=== PATIENT | female | born 1935 | race Caucasian/White ===

== ENCOUNTER 2018-12-18 19:13 | Inpatient (IN) | payer MEDICARE, BC ==
[~2018-12-18] VITALS: Ht 167.6 cm; Wt 64.3 kg
[~2018-12-18 19:13] MED LIST: ASPI81CH PO; LEVSOD50 PO; LEVSOD75 PO; Zofran4 MG PO
[2018-12-18 19:45] LABS: BASOPHILS ABSOLUTE AUTO 0.08 K/mm3 (0.00-0.23); BASOPHILS PERCENT AUTO 0 % (0-2); EOSINOPHILS ABSOLUTE AUTO 0.01 K/mm3 (0.00-0.68); EOSINOPHILS PERCENT AUTO 0 % (0-6); Hematocrit 41.3 % (33.0-51.0); Hemoglobin 13.7 g/dL (11.5-16.0); IMMATURE GRAN ABSOLUTE AUTO 0.09 K/mm3 (0.00-0.10); IMMATURE GRAN PERCENT AUTO 0 % (0-1); LYMPHOCYTES ABSOLUTE AUTO 3.54 K/mm3 (0.84-5.20); LYMPHOCYTES PERCENT AUTO 16 % (21-46); MONOCYTES ABSOLUTE AUTO 1.68 K/mm3 (0.16-1.47); MONOCYTES PERCENT AUTO 8 % (4-13); Mean Corpuscular HGB 30.6 pg (26.0-34.0); Mean Corpuscular HGB Conc 33.2 g/dL (31.5-36.5); Mean Corpuscular Volume 92 fL (80-100); Mean Platelet Volume 11.3 fL (9.1-12.4); NEUTROPHILS PERCENT AUTO 75 % (41-73); Platelet Count 206 K/mm3 (150-400); RDW Coefficient Variation 13.5 % (11.7-14.2); RDW Standard Deviation 46.3 fL (35.1-46.3); Red Blood Cell Count 4.48 M/mm3 (3.80-5.20)
[2018-12-18 20:14] LABS: Alanine Aminotransfer (ALT/SGP 30 U/L (12-78); Albumin, Blood 3.4 g/dL (3.4-5.0); Albumin/Globulin Ratio 0.9 (0.8-1.8); Alk Phos 61 U/L (50-136); Anion Gap 10 mmol/L (6-16); Aspartate Aminotrans (AST/SGOT 67 U/L (12-37); Bilirubin, Total 1.2 mg/dL (0.1-1.0); Blood Urea Nitrogen 23 mg/dL (8-24); Bun/Creatinine Ratio 28.7 (12.0-20.0); CO2, Blood 21 mmol/L (21-32); Chloride, Blood 106 mmol/L (98-108); Globulin, Blood 3.6 g/dL (2.2-4.0); Glomerular Filtration Rate >60 (60-); Glucose, Blood 121 mg/dL (70-99); Potassium, Blood 3.8 mmol/L (3.5-5.5); Sodium, Blood 137 mmol/L (136-145)
[2018-12-18 20:35] LABS: Creatine Kinase MB 14.2 ng/mL (0.0-3.6)
[2018-12-18] MEDS ORDERED: ELIQUIS2.5 MG PO (21:54)
[2018-12-18] MEDS ORDERED: METO25ER PO (21:55)
--- NOTE | 2018-12-19 00:26 | NUR ---
Transfer report from Saul SCHMITT on 83 year old Female being admitted after falling at home and being down on ground since around 5 am . She has reported bruises to lt face shoulder and ankle area and will be obs PT with full code status. Await admission.
[2018-12-19 03:57] LABS: Source, Urine Clean Catch
[2018-12-19 04:01] LABS: Appearance, Urine Cloudy (Clear); Bilirubin, Urine Neg (Neg); Blood, Urine 4+ (Neg); Color, Urine Amber (P-Yellow); Glucose Qualitative, Urine Neg (Neg); Ketones, Urine 2+ (Neg); Leukocyte Esterase, Urine 3+ (Neg); Nitrite, Urine Neg (Neg); Protein, Urine 3+ (Neg); Specific Gravity, Urine 1.025 (1.003-1.022); Urobilinogen, Urine NORM (Normal)
[2018-12-19 04:06] LABS: White Blood Cells, Urine TNTC /hpf (0-5)
[2018-12-19 04:07] LABS: Bacteria Many /hpf; Red Blood Cells, Urine 0-2 /hpf (0-2); Squamous Epithelial Cells Not Seen /hpf (Few)
--- NOTE | 2018-12-19 04:16 | NUR ---
83 year old Female lives alone fell approx 36 hours and recieved red non blanching areas to lt shoulder, lt ankle and upper spine scattered. Photo doc areas. PT has hx of lt breast lumpectomy and no lymph node dissection, hx of rt hip resurfacing and rt shoulder surgery. pain in rt hip with any movement and lt le and lt ue mild to moderate pain with movement. Getting IV fluids x 1 l at 150 ml per hour. Used bedpan to void cloudy strong urine x 1 UA positive C & S pending. No Children, has Friend who is currently out of town. Uses cane to ambulate baseline up hills etc, lives in [place]. Has Afib on Eliquis 2.5 mg po BID and synthroid. Rare tylenol use. Well educated retired educator. Continue to assess, has PT OT eval and Pallative care consult. continue to assess.
[2018-12-19 05:34] LABS: BASOPHILS PERCENT AUTO 1 % (0-2); EOSINOPHILS ABSOLUTE AUTO 0.18 K/mm3 (0.00-0.68); EOSINOPHILS PERCENT AUTO 1 % (0-6); Hematocrit 36.6 % (33.0-51.0); Hemoglobin 12.2 g/dL (11.5-16.0); IMMATURE GRAN ABSOLUTE AUTO 0.07 K/mm3 (0.00-0.10); IMMATURE GRAN PERCENT AUTO 0 % (0-1); LYMPHOCYTES ABSOLUTE AUTO 5.63 K/mm3 (0.84-5.20); LYMPHOCYTES PERCENT AUTO 30 % (21-46); MONOCYTES ABSOLUTE AUTO 1.66 K/mm3 (0.16-1.47); MONOCYTES PERCENT AUTO 9 % (4-13); Mean Corpuscular HGB 30.9 pg (26.0-34.0); Mean Corpuscular HGB Conc 33.3 g/dL (31.5-36.5); Mean Corpuscular Volume 93 fL (80-100); Mean Platelet Volume 11.8 fL (9.1-12.4); NEUTROPHILS PERCENT AUTO 60 % (41-73); Platelet Count 194 K/mm3 (150-400); RDW Coefficient Variation 13.5 % (11.7-14.2); Red Blood Cell Count 3.95 M/mm3 (3.80-5.20); White Blood Cell Count 18.94 K/mm3 (4.00-11.30)
[2018-12-19 05:51] LABS: Anion Gap 8 mmol/L (6-16); Blood Urea Nitrogen 28 mg/dL (8-24); Bun/Creatinine Ratio 32.9 (12.0-20.0); CO2, Blood 24 mmol/L (21-32); Calcium, Blood 8.2 mg/dL (8.5-10.1); Chloride, Blood 107 mmol/L (98-108); Creatinine, Blood 0.85 mg/dL (0.40-1.00); Glomerular Filtration Rate >60 (60-); Glucose, Blood 95 mg/dL (70-99); Potassium, Blood 3.5 mmol/L (3.5-5.5); Sodium, Blood 139 mmol/L (136-145)
--- NOTE | 2018-12-19 18:15 | NUR ---
PATIENT IS ALERT AND ORIENTED AND COMPLIANT WITH ALL CARES THOUGH ANY MOVEMENT RESULTS IN SEVERE PAIN TO HER RIGHT FX HIP. DRISCOLL ORDERED.
--- NOTE | 2018-12-19 18:50 | NUR ---
1650 URINARY CATH INSERTED PER ORDER. PATIENT TOLERATED WELL.
--- NOTE | 2018-12-20 04:31 | NUR ---
SHIFT SUMMARY: PT IS ALERT AND ORIENTED. PT IS CALM AND COOPERATIVE WITH CARE. PT CALLS APPROPRIATELY. PT ON BEDREST, NOT OUT OF BED OVERNIGHT. PT REPORTS R. HIP PAIN, MEDICATING PER EMAR. PT DENIES NAUSEA, VOMITING, AND SOB. PT SLEPT MUCH OF THE NIGHT WHEN NOT DISTURBED. ORTHO CONSULT PENDING. NO ACUTE CHANGES OR COMPLICATIONS OVERNIGHT. BED IN LOW POSITION, CALL LIGHT WITHIN REACH. WILL REPORT TO DAY NURSE.
[2018-12-20 05:27] LABS: Hematocrit 36.3 % (33.0-51.0); Hemoglobin 11.9 g/dL (11.5-16.0); Mean Corpuscular HGB 30.3 pg (26.0-34.0); Mean Corpuscular HGB Conc 32.8 g/dL (31.5-36.5); Mean Corpuscular Volume 92 fL (80-100); Mean Platelet Volume 11.3 fL (9.1-12.4); Platelet Count 188 K/mm3 (150-400); RDW Coefficient Variation 13.4 % (11.7-14.2); RDW Standard Deviation 46.5 fL (35.1-46.3); Red Blood Cell Count 3.93 M/mm3 (3.80-5.20); White Blood Cell Count 17.61 K/mm3 (4.00-11.30)
[2018-12-20 05:56] LABS: Alanine Aminotransfer (ALT/SGP 22 U/L (12-78); Albumin, Blood 2.6 g/dL (3.4-5.0); Albumin/Globulin Ratio 0.8 (0.8-1.8); Alk Phos 49 U/L (50-136); Anion Gap 7 mmol/L (6-16); Aspartate Aminotrans (AST/SGOT 37 U/L (12-37); Bilirubin, Total 0.9 mg/dL (0.1-1.0); Blood Urea Nitrogen 21 mg/dL (8-24); Bun/Creatinine Ratio 28.5 (12.0-20.0); CO2, Blood 23 mmol/L (21-32); Calcium, Blood 8.1 mg/dL (8.5-10.1); Chloride, Blood 105 mmol/L (98-108); Creatinine, Blood 0.74 mg/dL (0.40-1.00); Globulin, Blood 3.3 g/dL (2.2-4.0); Glomerular Filtration Rate >60 (60-); Glucose, Blood 113 mg/dL (70-99); Potassium, Blood 3.8 mmol/L (3.5-5.5); Sodium, Blood 135 mmol/L (136-145); Total Protein, Blood 5.9 g/dL (6.4-8.2)
[2018-12-20 06:05] LABS: BAND PERCENT MAN 1 % (0-8); BASOPHILS PERCENT MAN 0 % (0-2); EOSINOPHILS ABSOLUTE MAN 0.17 K/mm3 (0.00-0.68); EOSINOPHILS PERCENT MAN 1 % (0-6); LYMPHOCYTES % ATYPICAL MANUAL 7 % (0-0); LYMPHOCYTES ABSOLUTE MAN 7.04 K/mm3 (0.84-5.20); LYMPHOCYTES PERCENT MAN 33 % (21-46); METAMYELOCYTE ABSOLUTE MAN 0.17 K/mm3 (0.00-0.00); METAMYELOCYTE PERCENT MAN 1 % (0-0); MONOCYTES ABSOLUTE MAN 1.23 K/mm3 (0.16-1.47); MONOCYTES PERCENT MAN 7 % (4-13); NEUTROPHILS ABSOLUTE MAN 8.98 K/mm3 (1.96-9.15); SEG NEUTROPHILS PERCENT MAN 50 % (41-73); TOTAL CELLS COUNTED 100
--- NOTE | 2018-12-20 18:08 | NUR ---
PATIENT IS ALERT AND ORIENTED AND COOPERATIVE WITH CARE. SHE CALLS APPROPRIATELY. DR. DICKINSON ASSESSED THE PATIENT AND ORDERED A CT OF HER RIGHT LEG. A DRISCOLL IS IN PLACE. THE PATIENT STATES SHE HAS NOT HAD A BM IN A FEW DAYS SO BOWEL PROTOCOL HAS BEEN INITIATED. SHE COMPLAINS OF PAIN IN HER RIGHT LOWER EXTREMITY. SHE WAS MEDICATED THIS MORNING AND COMPLAINED THAT THE PAIN MEDICATION MADE HER NAUSEOUS AND DIZZY. SHE BEGAN TO FEEL BETTER THROUGHOUT THE DAY. SHE ATE BROTH FOR LUNCH AND DINNER.
--- NOTE | 2018-12-21 05:05 | NUR ---
SHIFT SUMMARY: PT IS ALERT AND ORIENTED. PT IS CALM AND COOPERATIVE WITH CARE. PT CALLS APPROPRIATELY. PT NOT ABLE TO STAND AT THIS POINT, R. HIP IS QUITE PAINFUL DURING MOVEMENT. PT TAKEN FOR CT OF THE R. HIP EARLY IN THE SHIFT. DRISCOLL PATENT AND DRAINING YELLOW URINE. PT DENIES NAUSEA, VOMITING, AND SOB. PT REPORTS PAIN DURING MOVEMENT, NO MEDICATIONS NEEDED THIS SHIFT. PT SLEPT MUCH OF THE NIGHT. NO ACUTE CHANGES. WILL REPORT TO DAY NURSE.
--- NOTE | 2018-12-21 18:19 | NUR ---
SHIFT SUMMARY NO CHANGES IN ASSESSMENT AT THIS TIME. PT AWAITING BED AT [facility] FOR TRANSFER. PT MEDICATED FOR HYPERTENSION. WILL REASSESS. OTHER VITALS STABLE. PT ONLY ALLOWED ONE REPOSITION THIS SHIFT DUE TO PAIN WITH MOVEMENT. PT DENIES OTHER NEEDS. PT ANXIOUS TO BE TRANSFERED. WILL CONTINUE TO MONITOR UNTIL TURNOVER IS COMPLETE.
--- NOTE | 2018-12-21 18:28 | NUR ---
REPORT CALLED TO KASHIF REPORT CALLED TO KARLOS NURSE, JODIE. JODIE DENIED ANY FURTHER QUESTIONS. TRANSPORT SCHEDULED TO PICK PT UP IN 30 MINUTES. WILL CONTINUE TO MONITOR PT.
== END 2018-12-21 19:34 | disposition short-term general hospital (02) | DRG 536 ==
LOC: ER 19:13 → MEDS 19:14 → ENPENDDIS 12-21 11:35 → EDPENDDIS 12-21 11:35 → MEDS 12-21 19:34
PROVIDERS: Emergency Medicine; Internal Medicine; ADMIT Hospitalist
DX: S72.141A Displaced intertrochanteric fracture of right femur, initial encounter for closed fracture (principal); S42.202A Unspecified fracture of upper end of left humerus, initial encounter for closed fracture; M97.01XA Periprosthetic fracture around internal prosthetic right hip joint, initial encounter; M62.82 Rhabdomyolysis; N39.0 Urinary tract infection, site not specified; I48.2 Chronic atrial fibrillation; B96.20 Unspecified Escherichia coli [E. coli] as the cause of diseases classified elsewhere; E03.9 Hypothyroidism, unspecified; W19.XXXA Unspecified fall, initial encounter; Z79.01 Long term (current) use of anticoagulants; Z85.3 Personal history of malignant neoplasm of breast; M81.0 Age-related osteoporosis without current pathological fracture
CPT/HCPCS: 36415; 70450; 71045; 72100; 73030; 73501; 73502; 73700; 80048; 80053; 81001; 82550; 82553; 84484; 85025; 86850; 86900; 86901; 87077; 87086; 87186; 93005; 93010; 97166; 97530; 99285-25; A9270-GY; J0696; J1650; J7030

== ENCOUNTER 2019-06-07 12:47 | Emergency (ER) | payer MEDICARE, BC ==
[~2019-06-07] VITALS: Ht 167.6 cm; Wt 81.7 kg
[~2019-06-07 12:47] MED LIST changes: +ELIQUIS2.5 MG PO; +METO25ER PO
[2019-06-07] MEDS ORDERED: Norco 5-325 Ta1 EACH PO (15:02)
== END 2019-06-07 15:26 | disposition home or self-care (01) ==
LOC: ER 12:47
DX: M47.816 Spondylosis without myelopathy or radiculopathy, lumbar region (principal); M81.0 Age-related osteoporosis without current pathological fracture; Z79.899 Other long term (current) drug therapy; Z79.01 Long term (current) use of anticoagulants; Z87.81 Personal history of (healed) traumatic fracture; W19.XXXA Unspecified fall, initial encounter
CPT/HCPCS: 72100; 99283-25

== ENCOUNTER 2020-03-23 14:29 | Inpatient (IN) | payer MEDICARE, BC ==
[~2020-03-23] VITALS: Ht 167.6 cm; Wt 57.9 kg
[~2020-03-23 14:29] MED LIST changes: +Norco 5-325 Ta1 EACH PO
[2020-03-23] MEDS ORDERED: ELIQUIS2.5 MG PO (15:03)
[2020-03-23 15:11] LABS: Hematocrit 42.2 % (33.0-51.0); Hemoglobin 13.8 g/dL (11.5-16.0); Mean Corpuscular HGB 29.9 pg (26.0-34.0); Mean Corpuscular HGB Conc 32.7 g/dL (31.5-36.5); Mean Corpuscular Volume 92 fL (80-100); Mean Platelet Volume 11.8 fL (9.1-12.4); Platelet Count 259 K/mm3 (150-400); RDW Coefficient Variation 13.3 % (11.7-14.2); RDW Standard Deviation 44.9 fL (35.1-46.3); Red Blood Cell Count 4.61 M/mm3 (3.80-5.20); White Blood Cell Count 15.11 K/mm3 (4.00-11.30)
[2020-03-23 15:21] LABS: International Normalized Ratio 1.05; Prothrombin Time Results 11.2 Sec (9.7-11.5)
[2020-03-23 15:30] LABS: Alanine Aminotransfer (ALT/SGP 15 U/L (12-78); Albumin, Blood 3.4 g/dL (3.4-5.0); Alk Phos 66 U/L (50-136); Anion Gap 7 mmol/L (6-16); Aspartate Aminotrans (AST/SGOT 15 U/L (12-37); Bilirubin, Total 0.3 mg/dL (0.1-1.0); Blood Urea Nitrogen 20 mg/dL (8-24); Bun/Creatinine Ratio 23.6 (12.0-20.0); CO2, Blood 24 mmol/L (21-32); Chloride, Blood 103 mmol/L (98-108); Creatinine, Blood 0.85 mg/dL (0.40-1.00); Globulin, Blood 3.5 g/dL (2.2-4.0); Glomerular Filtration Rate >60 (60-); Glucose, Blood 143 mg/dL (70-99); Potassium, Blood 4.2 mmol/L (3.5-5.5); Sodium, Blood 134 mmol/L (136-145); Total Protein, Blood 6.9 g/dL (6.4-8.2); Troponin I <0.015 ng/mL (0.000-0.040)
[2020-03-23 15:49] LABS: BASOPHILS PERCENT MAN 0 % (0-2); EOSINOPHILS ABSOLUTE MAN 0.15 K/mm3 (0.00-0.68); EOSINOPHILS PERCENT MAN 1 % (0-6); LYMPHOCYTES % ATYPICAL MANUAL 5 % (0-0); LYMPHOCYTES ABSOLUTE MAN 6.64 K/mm3 (0.84-5.20); LYMPHOCYTES PERCENT MAN 39 % (21-46); MONOCYTES ABSOLUTE MAN 2.11 K/mm3 (0.16-1.47); MONOCYTES PERCENT MAN 14 % (4-13); NEUTROPHILS ABSOLUTE MAN 6.19 K/mm3 (1.96-9.15); SEG NEUTROPHILS PERCENT MAN 41 % (41-73); TOTAL CELLS COUNTED 100
[2020-03-23 16:18] LABS: Source, Urine Catheter
[2020-03-23 16:23] LABS: Bilirubin, Urine Neg (Neg); Blood, Urine Neg (Neg); Glucose Qualitative, Urine Neg (Neg); Ketones, Urine 1+ (Neg); Leukocyte Esterase, Urine Neg (Neg); Nitrite, Urine Neg (Neg); Protein, Urine Neg (Neg); Urobilinogen, Urine NORM (Normal)
[2020-03-23 16:31] LABS: Appearance, Urine Clear (Clear); Color, Urine Pale Yellow (P-Yellow)
--- NOTE | 2020-03-24 05:10 | NUR ---
SHIFT SUMMARY ADMITTED FROM ER THIS SHIFT FOR AMS. FULL CODE. HANDOFF GIVEN FROM ER NURSE AMOS. SHE WAS TRANSPORTED TO [facility] VIA GURNEY. ORIENTED TO UNIT, CALL BUTTON WITHIN REACH, BED ALARM SET. SHE IS ABLE TO GET UP TO BSC AND MAKE HER NEEDS KNOWN. TODAY SHE SHOULD GET AN MRI AND AN ECHO. R/O TIA. IF SHE CONTINUES TO BE BRADYCARDIC, THE PLAN IS TO CALL A CARDIOLOGY CONSULT. FOR MY SHIFT HER HR RANGED 44 - 48 BPM.
[2020-03-24 05:11] LABS: Hematocrit 38.8 % (33.0-51.0); Hemoglobin 12.7 g/dL (11.5-16.0); Mean Corpuscular HGB 29.9 pg (26.0-34.0); Mean Corpuscular HGB Conc 32.7 g/dL (31.5-36.5); Mean Corpuscular Volume 91 fL (80-100); Mean Platelet Volume 11.7 fL (9.1-12.4); Platelet Count 236 K/mm3 (150-400); RDW Coefficient Variation 13.2 % (11.7-14.2); RDW Standard Deviation 44.5 fL (35.1-46.3); Red Blood Cell Count 4.25 M/mm3 (3.80-5.20); White Blood Cell Count 13.18 K/mm3 (4.00-11.30)
[2020-03-24 05:35] LABS: BASOPHILS PERCENT MAN 0 % (0-2); EOSINOPHILS ABSOLUTE MAN 0.13 K/mm3 (0.00-0.68); EOSINOPHILS PERCENT MAN 1 % (0-6); LYMPHOCYTES ABSOLUTE MAN 5.93 K/mm3 (0.84-5.20); LYMPHOCYTES PERCENT MAN 45 % (21-46); MONOCYTES ABSOLUTE MAN 1.18 K/mm3 (0.16-1.47); MONOCYTES PERCENT MAN 9 % (4-13); NEUTROPHILS ABSOLUTE MAN 5.93 K/mm3 (1.96-9.15); SEG NEUTROPHILS PERCENT MAN 45 % (41-73); TOTAL CELLS COUNTED 100
[2020-03-24 05:42] LABS: Alanine Aminotransfer (ALT/SGP 11 U/L (12-78); Albumin, Blood 3.2 g/dL (3.4-5.0); Alk Phos 57 U/L (50-136); Anion Gap 6 mmol/L (6-16); Aspartate Aminotrans (AST/SGOT 17 U/L (12-37); Bilirubin, Total 0.5 mg/dL (0.1-1.0); Blood Urea Nitrogen 15 mg/dL (8-24); Bun/Creatinine Ratio 19.6 (12.0-20.0); CHOL/HDL RATIO 2.6; CO2, Blood 24 mmol/L (21-32); Calcium, Blood 8.6 mg/dL (8.5-10.1); Chloride, Blood 103 mmol/L (98-108); Cholesterol 188 mg/dL (50-200); Creatinine, Blood 0.77 mg/dL (0.40-1.00); Globulin, Blood 3.1 g/dL (2.2-4.0); Glomerular Filtration Rate >60 (60-); Glucose, Blood 88 mg/dL (70-99); HDL Cholesterol 73 mg/dL (>39); LDL/HDL RATIO 1.4; Low Density Lipoprotein Chol 102 mg/dL (0-110); Potassium, Blood 3.8 mmol/L (3.5-5.5); Sodium, Blood 133 mmol/L (136-145); Total Protein, Blood 6.3 g/dL (6.4-8.2); Triglycerides 66 mg/dL (30-160); Very Low Density Lipoprot Chol 13 mg/dL (6-32)
--- NOTE | 2020-03-24 12:33 | NUR ---
CALLED TELEMETRY AND PT'S HR 71 ADMINISTRED METOPROLOL 25 MG PER EMAR.
--- NOTE | 2020-03-24 17:27 | NUR ---
PT AOX3-4 AND COOPERATIVE OF CARE. PT HAS BEEN UP FOR MEALS AND IS A ONE PERSON ASSIST TO RESTROOM. PT DOES NOT USE CALL LIGHT AT TIMES AND WILL SET BED ALARM OFF INSTEAD OF CALLING FOR ASSISTANCE EVEN THOUGH SHE SEEMS TO KNOW WHY NURSES WANT TO HELP HER. PT CAN BE SLIGHTLY UNSTEADY ON HER FEET AND MOVES QUICKLY. PT HAS CALL LIGHT WITHIN REACH WILL CONTINUE TO MONITOR.
--- NOTE | 2020-03-25 03:51 | NUR ---
SHIFT SUMMARY ADMITTED FOR AMS. FULL CODE. PLAN IS TO RETRIEVE/INTERPRET THE ECHO RESULTS, AND POSSIBLY DC W/ DAY HOLTER MONITOR IF NO NEW CONCERNS. HOME BETA ALICIA MEDICINE IS RESUMED. 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 THIS PT CAN BE FORGETFUL AND CONFUSED AT TIMES BUT IS EASILY REDIRECTABLE. NO PROBLEMS WITH SWALLOWING OR EATING. CARDIOLOGY CONSULT IS DR. GOYAL. NO NEW CONCERNS THIS SHIFT.
[2020-03-25 04:57] LABS: Hematocrit 37.1 % (33.0-51.0); Hemoglobin 12.4 g/dL (11.5-16.0); Mean Corpuscular HGB 30.3 pg (26.0-34.0); Mean Corpuscular HGB Conc 33.4 g/dL (31.5-36.5); Mean Corpuscular Volume 91 fL (80-100); Mean Platelet Volume 11.4 fL (9.1-12.4); Platelet Count 223 K/mm3 (150-400); RDW Coefficient Variation 13.2 % (11.7-14.2); RDW Standard Deviation 43.9 fL (35.1-46.3); Red Blood Cell Count 4.09 M/mm3 (3.80-5.20); White Blood Cell Count 15.02 K/mm3 (4.00-11.30)
[2020-03-25 05:15] LABS: Anion Gap 4 mmol/L (6-16); Blood Urea Nitrogen 18 mg/dL (8-24); Bun/Creatinine Ratio 23.2 (12.0-20.0); CO2, Blood 25 mmol/L (21-32); Calcium, Blood 8.7 mg/dL (8.5-10.1); Chloride, Blood 104 mmol/L (98-108); Creatinine, Blood 0.78 mg/dL (0.40-1.00); Glomerular Filtration Rate >60 (60-); Glucose, Blood 86 mg/dL (70-99); Potassium, Blood 4.1 mmol/L (3.5-5.5); Sodium, Blood 133 mmol/L (136-145)
[2020-03-25 05:57] LABS: BASOPHILS ABSOLUTE MAN 0.15 K/mm3 (0.00-0.23); BASOPHILS PERCENT MAN 1 % (0-2); EOSINOPHILS ABSOLUTE MAN 0.45 K/mm3 (0.00-0.68); EOSINOPHILS PERCENT MAN 3 % (0-6); LYMPHOCYTES ABSOLUTE MAN 8.11 K/mm3 (0.84-5.20); LYMPHOCYTES PERCENT MAN 54 % (21-46); MONOCYTES PERCENT MAN 12 % (4-13); SEG NEUTROPHILS PERCENT MAN 30 % (41-73); TOTAL CELLS COUNTED 100
--- NOTE | 2020-03-25 16:16 | NUR ---
PT HAS BEEN AOX4 ALL DAY. PT WAS READY TO DISCHARGE SOON SHE WOKE UP. PT HAD CARDIOLOGY PLACE MONITOR ON HER TO WEAR HOME PRIOR TO DISCHARGE AND FOLLOW UP APPOINTMENT HAS BEEN SCHEDULED. PT HAD A NON INJURY FALL PLEASE REFER TO POST FALL ASSESMENT. PT STATED SHE FELT FINE AND WAS GRATEFUL FOR ALL THE HELP SHE RECIEVED. PT DISCHARGED AT 1540 ALL PAPERWORK WAS REVEIWED AND EDUCATIONAL MATERIAL SENT.
== END 2020-03-25 15:40 | disposition home or self-care (01) | DRG 312 ==
LOC: ER 14:29 → MEDS 14:30 → ER 19:21 → MEDS 19:31
PROVIDERS: Emergency Medicine; ADMIT Family Medicine
DX: R55 Syncope and collapse (principal); I47.2 Ventricular tachycardia; G93.40 Encephalopathy, unspecified; I48.0 Paroxysmal atrial fibrillation; I10 Essential (primary) hypertension; E03.9 Hypothyroidism, unspecified; M81.0 Age-related osteoporosis without current pathological fracture; Z79.01 Long term (current) use of anticoagulants; Z85.3 Personal history of malignant neoplasm of breast; I49.1 Atrial premature depolarization; Z87.81 Personal history of (healed) traumatic fracture; I49.8 Other specified cardiac arrhythmias
CPT/HCPCS: 36415; 70450; 70544; 70549; 70551; 71045; 80048; 80053; 80061; 81003; 83735; 84443; 84484; 85025; 85610; 93005; 93010; 93306; 96360; 96361; 99285-25; A9270-GY; A9579; G0378; J7030; P9612

== ENCOUNTER 2020-07-14 23:26 | Observation (INO) | payer MEDICARE, BC ==
[~2020-07-14] VITALS: Ht 167.6 cm; Wt 62.2 kg
[2020-07-15 03:48] LABS: Hematocrit 40.8 % (33.0-51.0); Hemoglobin 13.3 g/dL (11.5-16.0); Mean Corpuscular HGB Conc 32.6 g/dL (31.5-36.5); Mean Corpuscular Volume 92 fL (80-100); Mean Platelet Volume 11.6 fL (9.1-12.4); Platelet Count 248 K/mm3 (150-400); RDW Coefficient Variation 13.5 % (11.7-14.2); RDW Standard Deviation 46.5 fL (35.1-46.3); Red Blood Cell Count 4.43 M/mm3 (3.80-5.20); White Blood Cell Count 22.16 K/mm3 (4.00-11.30)
[2020-07-15 03:58] LABS: Alanine Aminotransfer (ALT/SGP 36 U/L (12-78); Albumin, Blood 3.7 g/dL (3.4-5.0); Albumin/Globulin Ratio 1.2 (0.8-1.8); Alk Phos 65 U/L (50-136); Anion Gap 4 mmol/L (6-16); Aspartate Aminotrans (AST/SGOT 30 U/L (12-37); Bilirubin, Total 0.4 mg/dL (0.1-1.0); Blood Urea Nitrogen 23 mg/dL (8-24); Bun/Creatinine Ratio 24.9 (12.0-20.0); CO2, Blood 26 mmol/L (21-32); Calcium, Blood 8.8 mg/dL (8.5-10.1); Chloride, Blood 102 mmol/L (98-108); Creatinine, Blood 0.92 mg/dL (0.40-1.00); Globulin, Blood 3.1 g/dL (2.2-4.0); Glomerular Filtration Rate >60 (60-); Glucose, Blood 99 mg/dL (70-99); Potassium, Blood 4.5 mmol/L (3.5-5.5); Sodium, Blood 132 mmol/L (136-145); Total Protein, Blood 6.8 g/dL (6.4-8.2)
[2020-07-15 04:09] LABS: BAND PERCENT MAN 8 % (0-8); BASOPHILS PERCENT MAN 0 % (0-2); EOSINOPHILS ABSOLUTE MAN 0.22 K/mm3 (0.00-0.68); EOSINOPHILS PERCENT MAN 1 % (0-6); LYMPHOCYTES ABSOLUTE MAN 5.09 K/mm3 (0.84-5.20); LYMPHOCYTES PERCENT MAN 23 % (21-46); MONOCYTES ABSOLUTE MAN 1.99 K/mm3 (0.16-1.47); MONOCYTES PERCENT MAN 9 % (4-13); NEUTROPHILS ABSOLUTE MAN 14.84 K/mm3 (1.96-9.15); SEG NEUTROPHILS PERCENT MAN 59 % (41-73); TOTAL CELLS COUNTED 100
[2020-07-15 05:26] LABS: Influenza A, PCR Negative (NEGATIVE); Influenza B, PCR Negative (NEGATIVE); Resp Syncytial Virus, PCR Negative (NEGATIVE); SARS-Cov-2 (COVID-19) PCR, MMC Negative (NEGATIVE)
--- NOTE | 2020-07-15 06:30 | NUR ---
REPORT RECEIVED FROM KASSY OLMOS RN. PT TRANSPORTED TO MEDICAL FLOOR VIA GURNEY, TRANSFERRED TO BED WITH SLIDE-SHEET AND ASSIST OF 4. APPEARED TO TOLERATE WELL. PT REPORTS PAIN 8/10 WITH MOVEMENT, STATES ACCEPTABLE PAIN LEVEL 5/10. PT SETTLED IN BED, ORIENTED TO ROOM/UNIT. NIGHT NURSE'S ASSISTING PT AT THIS TIME. CALL LIGHT, POSSESSIONS IN REACH, BED IN LOW POSITION WITH ALARMS ON. WILL REPORT OFF TO DAY RN.
[2020-07-15 12:38] LABS: Source, Urine Catheter
[2020-07-15 12:53] LABS: Bilirubin, Urine Neg (Neg); Blood, Urine Neg (Neg); Glucose Qualitative, Urine Neg (Neg); Ketones, Urine 1+ (Neg); Leukocyte Esterase, Urine Neg (Neg); Nitrite, Urine Neg (Neg); Protein, Urine Neg (Neg); Urobilinogen, Urine NORM (Normal)
[2020-07-15 12:55] LABS: Appearance, Urine Clear (Clear); Color, Urine Yellow (P-Yellow)
--- NOTE | 2020-07-15 17:05 | NUR ---
ADMIT: 07/15/20 DISCHARGE: DX: Pelvic Fracture CC: ADMIT: 03/24/20 DISCHARGE: 03/25/20 DX: AMS CC: KYLE CALL: RESIDENCE: home CAREGIVER: self DX: , HTN, Afib, See list DME: none CCM: Referral- 2019 HOME HEALTH: none SUMMARY: 1: Pelvic fracture A/P: - pain control - start oxycodone 5 mg q4hs and iv fentanyl for breakthrough - PT/OT eval. 2: Paroxysmal atrial fibrillation A/P: Resume home med regimen. 3: Hypothyroidism A/P: Resume home med regimen. 4: Hypertension A/P: Resume home med regimen. 5: Leucocytosis A/P: Likely reactive ADMIT: 03/24/20 DISCHARGE 03/25/20 PROBLEMS: 1: ACUTE ALTERATION IN MENTAL STATUS A/P: UNCLEAR SOURCE OF EPISODE TODAY DDX INCLUDES TIA AND SYMPTOMATIC ARRHYTHMIA WILL W/U FOR TIA: MRI HEAD WO, MRA HEAD, MRA NECK, ECHO AND TELEMETRY OVERNIGHT WILL START ASA 325 MG PO NOW AND LIPITOR 80 MG PO NOW WILL PULL LIPIDS IN AM WITH LABS Q4 HR NEURO CHECKS TONIGHT WILL ALSO HOLD METOPROLOL -- CONCERN OVERBLOCKADE MAY BE CAUSING THE ARRHYTHMIA AND/OR BRADYCARDIA IF RHYTHM ABNORMALITY PERSIST IN AM AND TIA W/U NEGATIVE, MAY CONSULT CARDS IN AM FOR ARRHYTHMIA
--- NOTE | 2020-07-15 17:51 | NUR ---
ADMIT: 07/15/20 DISCHARGE: DX: Pelvic Fracture CC: [email or web address] ADMIT: 03/24/20 DISCHARGE: 03/25/20 DX: AMS CC: KYLE CALL: RESIDENCE: home, CAREGIVER: self Has a house keeper Has a male caregiver that lives downstairs, can provide 24 hour care DX: , HTN, Afib, See list DME: valeria CCM: Referral- 2019 HOME HEALTH: none SUMMARY: Admit 07/14/20 07/15/20 chart review, PT OT recommend SNF. [employer] insurance may require a prior authorization for snf, may not be able to get until saturday. DR Torrez ETA discharge Saturday, not sure if he was thinking SNF or return home with 24 hour caregiver. 1: Pelvic fracture A/P: - pain control
--- NOTE | 2020-07-15 18:38 | NUR ---
PT AOX4 AND COOPERATIVE OF CARE. PT ABLE TO USE CALL LIGHT APPROPRIATELY. PT HAS HAD CONTINUED PAIN IN R HIP TREATED PER EMAR. PT HAS BEEN DOING WELL AND WAS ABLE TO BE TRANSFERED BY PHYSICAL THERAPY TO CHAIR TO SIT UP TODAY. NO DISTRESS NOTED. CALL LIGHT WITHIN REACH WILL CONTINUE TO MONITOR.
--- NOTE | 2020-07-15 19:10 | NUR ---
recvd report from previous shift OSKAR bates. pt sitting in recliner watching television, a/o x 4, pleasant/cooperative. call light within reach.
[2020-07-15 20:34] LABS: Source, Urine Clean Catch
[2020-07-15 20:38] LABS: Bilirubin, Urine Neg (Neg); Blood, Urine Neg (Neg); Glucose Qualitative, Urine Neg (Neg); Ketones, Urine 1+ (Neg); Leukocyte Esterase, Urine 1+ (Neg); Nitrite, Urine Neg (Neg); Protein, Urine 1+ (Neg); Specific Gravity, Urine 1.015 (1.003-1.022); Urobilinogen, Urine NORM (Normal); pH, Urine 6.5 (5.0-8.0)
[2020-07-15 20:41] LABS: Appearance, Urine Hazy (Clear); Color, Urine Yellow (P-Yellow)
[2020-07-15 20:48] LABS: Bacteria Few /hpf; Mucus Light (0-Heavy); Red Blood Cells, Urine Rare /hpf (0-2); Squamous Epithelial Cells Rare /hpf (Few)
[2020-07-16 04:43] LABS: BASOPHILS ABSOLUTE AUTO 0.09 K/mm3 (0.00-0.23); BASOPHILS PERCENT AUTO 1 % (0-2); EOSINOPHILS ABSOLUTE AUTO 0.33 K/mm3 (0.00-0.68); EOSINOPHILS PERCENT AUTO 2 % (0-6); Hematocrit 38.6 % (33.0-51.0); Hemoglobin 12.8 g/dL (11.5-16.0); IMMATURE GRAN ABSOLUTE AUTO 0.09 K/mm3 (0.00-0.10); IMMATURE GRAN PERCENT AUTO 1 % (0-1); LYMPHOCYTES ABSOLUTE AUTO 4.45 K/mm3 (0.84-5.20); LYMPHOCYTES PERCENT AUTO 27 % (21-46); MONOCYTES ABSOLUTE AUTO 1.22 K/mm3 (0.16-1.47); MONOCYTES PERCENT AUTO 7 % (4-13); Mean Corpuscular HGB Conc 33.2 g/dL (31.5-36.5); Mean Corpuscular Volume 90 fL (80-100); Mean Platelet Volume 11.2 fL (9.1-12.4); NEUTROPHILS ABSOLUTE AUTO 10.46 K/mm3 (1.96-9.15); NEUTROPHILS PERCENT AUTO 63 % (41-73); Platelet Count 223 K/mm3 (150-400); RDW Coefficient Variation 13.4 % (11.7-14.2); RDW Standard Deviation 45.2 fL (35.1-46.3); Red Blood Cell Count 4.27 M/mm3 (3.80-5.20); White Blood Cell Count 16.64 K/mm3 (4.00-11.30)
--- NOTE | 2020-07-16 05:40 | NUR ---
shift summary: vss, no acute changes. pt voided x 2 with one void on commode, one incontinent attends. pt awakens confused, reorients well. pt denies n/v. low back/pelvic area painful, rates pain at 6/10, provided analgesia per mar. Pt 2 person transfer to commode, difficulty with weightbearing, painful and weak.
--- NOTE | 2020-07-16 16:19 | NUR ---
PT IS A/OX3, PLEASANT AND COOPERATIVE, THE PT IS A 2 PERSON ASSIST UP TO THE CHAIR AND THE BSC, THE WAS UP IN THE CHAIR FOR BREAKFAST AND DINNER, THE PT WAS GIVEN PAIN MEDICATION X1 THIS AFTERNOON, PT HAS A VISITOR AT THE BEDSIDE AT THIS TIME, PT APPEARS TO BE BREATHING EASILY ON RA, PT WAS GIVEN MOM PER HER REQUEST FOR CONSTIPATION, CALL LIGHT IN REACH, WILL CONTINUE TO MONITOR AND ASSESS FOR CHANGES
--- NOTE | 2020-07-17 05:54 | NUR ---
SHIFT SUMMARY PT HAS RESTED OFF AND ON THIS SHIFT. PT REPORTS THAT SHE HAS NOT HAD A BM SINCE SATURDAY. BOWEL CARE STARTED YESTEDAY, AND PT STILL HAS NOT HAD A BM AT THIS TIME DESPITE A COUPLE ATTEMPTS. PT HAS DONE FAIR WITH AMBULATION TO BSC USING WALKER AND GAIT BELT. PT STILL VERY PAINFUL WITH MOVMENT. MEDICATED X1 FOR PAIN. VITALS ARE STABLE. PT A/OX3 BUT CAN BE FORGETFUL. ASSESSMENT REMAINS UNCHANGED. BED IN LOWEST POSITION, CALL LIGHT WITHIN REACH.
[2020-07-17 09:01] LABS: Hematocrit 41.2 % (33.0-51.0); Hemoglobin 13.3 g/dL (11.5-16.0); Mean Corpuscular HGB 29.8 pg (26.0-34.0); Mean Corpuscular HGB Conc 32.3 g/dL (31.5-36.5); Mean Corpuscular Volume 92 fL (80-100); Mean Platelet Volume 11.4 fL (9.1-12.4); Platelet Count 229 K/mm3 (150-400); RDW Coefficient Variation 13.5 % (11.7-14.2); RDW Standard Deviation 46.2 fL (35.1-46.3); Red Blood Cell Count 4.47 M/mm3 (3.80-5.20)
[2020-07-17 09:21] LABS: Alanine Aminotransfer (ALT/SGP 20 U/L (12-78); Albumin/Globulin Ratio 0.9 (0.8-1.8); Alk Phos 59 U/L (50-136); Anion Gap 6 mmol/L (6-16); Aspartate Aminotrans (AST/SGOT 16 U/L (12-37); Bilirubin, Total 0.8 mg/dL (0.1-1.0); Blood Urea Nitrogen 16 mg/dL (8-24); Bun/Creatinine Ratio 23.7 (12.0-20.0); CO2, Blood 27 mmol/L (21-32); Calcium, Blood 8.6 mg/dL (8.5-10.1); Chloride, Blood 99 mmol/L (98-108); Creatinine, Blood 0.68 mg/dL (0.40-1.00); Globulin, Blood 3.3 g/dL (2.2-4.0); Glomerular Filtration Rate >60 (60-); Glucose, Blood 93 mg/dL (70-99); Potassium, Blood 4.2 mmol/L (3.5-5.5); Sodium, Blood 132 mmol/L (136-145); Total Protein, Blood 6.3 g/dL (6.4-8.2)
[2020-07-17 09:36] LABS: BASOPHILS ABSOLUTE MAN 0.14 K/mm3 (0.00-0.23); BASOPHILS PERCENT MAN 1 % (0-2); EOSINOPHILS ABSOLUTE MAN 0.73 K/mm3 (0.00-0.68); EOSINOPHILS PERCENT MAN 5 % (0-6); LYMPHOCYTES % ATYPICAL MANUAL 2 % (0-0); LYMPHOCYTES ABSOLUTE MAN 4.67 K/mm3 (0.84-5.20); LYMPHOCYTES PERCENT MAN 30 % (21-46); MONOCYTES PERCENT MAN 11 % (4-13); NEUTROPHILS ABSOLUTE MAN 7.44 K/mm3 (1.96-9.15); SEG NEUTROPHILS PERCENT MAN 51 % (41-73); TOTAL CELLS COUNTED 100
[2020-07-17] MEDS ORDERED: ACET325 PO (14:15)
[2020-07-17] MEDS ORDERED: OXAYDO5 M1 PO (14:16)
[2020-07-17] MEDS ORDERED: DULCOLAX400 MG/5 M PO (14:16)
[2020-07-17 15:37] LABS: Influenza A, PCR Negative (NEGATIVE); Influenza B, PCR Negative (NEGATIVE); Resp Syncytial Virus, PCR Negative (NEGATIVE); SARS-Cov-2 (COVID-19) PCR, MMC Negative (NEGATIVE)
--- NOTE | 2020-07-17 16:02 | NUR ---
PT DISCHARGED THE IS DISCHARGED TO [facility], REPORT CALLED TO NICOLETTE SCHMITT , PT IS AWAITING TRANSPORTATION AT THIS TIME, PT APPEARS TO BE BREATHING EASILY ON RA AT THIS TIME, PT WILL BE TRANSPORTED VIA WHEELCHAIR VAN ACCOMPANIED BY [facility]
--- NOTE | 2020-07-17 16:40 | NUR ---
PT DISCHARGED PT TRANSPORTED VIA GURNEY, ACCOMPANIED BY [facility]
[2020-12-06] MEDS ORDERED: TRAM50 (11:47)
== END 2020-07-17 16:35 ==
LOC: ER 23:26 → MEDS 23:27
PROVIDERS: Emergency Medicine; Internal Medicine; ADMIT Internal Medicine
DX: M80.051A Age-related osteoporosis with current pathological fracture, right femur, initial encounter for fracture (principal); M80.052A Age-related osteoporosis with current pathological fracture, left femur, initial encounter for fracture; M80.0AXA Age-related osteoporosis with current pathological fracture, other site, initial encounter for fracture; I48.91 Unspecified atrial fibrillation; E03.9 Hypothyroidism, unspecified; M51.36 Other intervertebral disc degeneration, lumbar region; M47.816 Spondylosis without myelopathy or radiculopathy, lumbar region; M48.061 Spinal stenosis, lumbar region without neurogenic claudication; W18.30XA Fall on same level, unspecified, initial encounter; Y92.89 Other specified places as the place of occurrence of the external cause; Z79.01 Long term (current) use of anticoagulants; Z87.891 Personal history of nicotine dependence; Z96.641 Presence of right artificial hip joint
CPT/HCPCS: 0241U; 36415; 71045; 72100; 72131; 72192; 73502; 80053; 81001; 81003; 85025; 87086; 93005; 93010; 96372; 96374; 96375; 97162; 97166; 97530; 97535; 99285-25; A9270; G0378; J1650; J2405; J3010

== ENCOUNTER 2020-12-14 08:18 | Day surgery (SDC) | payer MEDICARE, BC ==
[~2020-12-14] VITALS: Ht 167.6 cm; Wt 58.8 kg
[~2020-12-14 08:18] MED LIST changes: +ACET325 PO; +DULCOLAX400 MG/5 M PO; +OXAYDO5 M1 PO; +TRAM50
--- NOTE | 2020-12-14 08:38 | NUR ---
12/14/20 0838 Toma Arteaga TETRACAINE DROP PLACED IN LEFT EYE AT [address] IN LEFT EYE AT 0833. PT TOLERATED WELL.
== END 2020-12-14 10:13 | disposition home or self-care (01) ==
LOC: ORSCSDS 08:18
PROVIDERS: Ophthalmology
PROC: 08RK3JZ Replacement of Left Lens with Synthetic Substitute, Percutaneous Approach (ICD-10-PCS; principal; 2020-12-14 09:30)
DX: H25.12 Age-related nuclear cataract, left eye (principal); I10 Essential (primary) hypertension; Z79.899 Other long term (current) drug therapy; E03.9 Hypothyroidism, unspecified; I48.19 Other persistent atrial fibrillation; Z79.01 Long term (current) use of anticoagulants
CPT/HCPCS: J2001; J2250; J3010; J3301; J7040; V2632

== ENCOUNTER 2021-03-26 19:49 | Observation (INO) | payer MEDICARE, BC ==
[~2021-03-26] VITALS: Ht 165.1 cm; Wt 58.0 kg
[2021-03-26 20:27] LABS: BASOPHILS PERCENT AUTO 1 % (0-2); EOSINOPHILS ABSOLUTE AUTO 0.08 K/mm3 (0.00-0.68); EOSINOPHILS PERCENT AUTO 0 % (0-6); Hemoglobin 14.2 g/dL (11.5-16.0); IMMATURE GRAN PERCENT AUTO 1 % (0-1); LYMPHOCYTES PERCENT AUTO 23 % (21-46); MONOCYTES PERCENT AUTO 7 % (4-13); Mean Corpuscular HGB 30.8 pg (26.0-34.0); Mean Corpuscular HGB Conc 33.8 g/dL (31.5-36.5); Mean Corpuscular Volume 91 fL (80-100); Mean Platelet Volume 10.6 fL (9.1-12.4); NEUTROPHILS ABSOLUTE AUTO 13.67 K/mm3 (1.96-9.15); NEUTROPHILS PERCENT AUTO 68 % (41-73); Platelet Count 275 K/mm3 (150-400); RDW Coefficient Variation 13.7 % (11.7-14.2); RDW Standard Deviation 46.7 fL (35.1-46.3); Red Blood Cell Count 4.61 M/mm3 (3.80-5.20); White Blood Cell Count 20.15 K/mm3 (4.00-11.30)
[2021-03-26 20:41] LABS: Alanine Aminotransfer (ALT/SGP 22 U/L (12-78); Albumin, Blood 3.4 g/dL (3.4-5.0); Albumin/Globulin Ratio 0.9 (0.8-1.8); Alk Phos 49 U/L (50-136); Anion Gap 8 mmol/L (6-16); Aspartate Aminotrans (AST/SGOT 25 U/L (12-37); Bilirubin, Total 0.6 mg/dL (0.1-1.0); Blood Urea Nitrogen 16 mg/dL (8-24); Bun/Creatinine Ratio 17.1 (12.0-20.0); CO2, Blood 22 mmol/L (21-32); Calcium, Blood 8.4 mg/dL (8.5-10.1); Chloride, Blood 102 mmol/L (98-108); Creatinine, Blood 0.94 mg/dL (0.40-1.00); Globulin, Blood 3.6 g/dL (2.2-4.0); Glomerular Filtration Rate 57 (60-); Glucose, Blood 105 mg/dL (70-99); Potassium, Blood 3.8 mmol/L (3.5-5.5); Sodium, Blood 132 mmol/L (136-145); Troponin I <0.015 ng/mL (0.000-0.040)
[2021-03-26 21:15] LABS: Source, Urine Clean Catch
[2021-03-26 21:17] LABS: Appearance, Urine Clear (Clear); Bilirubin, Urine Neg (Neg); Blood, Urine Neg (Neg); Color, Urine Yellow (P-Yellow); Glucose Qualitative, Urine Neg (Neg); Ketones, Urine 2+ (Neg); Leukocyte Esterase, Urine Neg (Neg); Nitrite, Urine Neg (Neg); Protein, Urine Neg (Neg); Urobilinogen, Urine NORM (Normal)
[2021-03-27 04:09] LABS: Magnesium, Blood 2.1 mg/dL (1.6-2.4)
[2021-03-27 06:10] LABS: Free Thyroxine 1.32 ng/dL (0.70-1.60); Thyroid Stimulating Hormone 2.12 uIU/mL (0.360-4.800)
--- NOTE | 2021-03-27 06:43 | NUR ---
PT NEW ADMIT THIS AM FOR HYPOXIA + AFIB. PT VSS, SATS >90% ON RA. PT DENIED CP/PRESSURE. PT DOES C/O LEFT HIP PAIN WHEN BEARING WT, DECLINED NEED FOR PAIN MEDS. PT A/O X4 UPON ARRIVAL TO FLOOR, AWOKE SLIGHTLY DISORIENTED THIS AM, REORIENTED EASILY.
[2021-03-27 08:00] LABS: Hematocrit 41.3 % (33.0-51.0); Hemoglobin 13.5 g/dL (11.5-16.0); Mean Corpuscular HGB 30.1 pg (26.0-34.0); Mean Corpuscular HGB Conc 32.7 g/dL (31.5-36.5); Mean Corpuscular Volume 92 fL (80-100); Platelet Count 266 K/mm3 (150-400); RDW Coefficient Variation 13.6 % (11.7-14.2); RDW Standard Deviation 46.7 fL (35.1-46.3); Red Blood Cell Count 4.48 M/mm3 (3.80-5.20); White Blood Cell Count 15.68 K/mm3 (4.00-11.30)
[2021-03-27 08:26] LABS: Alanine Aminotransfer (ALT/SGP 19 U/L (12-78); Albumin, Blood 3.3 g/dL (3.4-5.0); Albumin/Globulin Ratio 0.9 (0.8-1.8); Alk Phos 49 U/L (50-136); Anion Gap 5 mmol/L (6-16); Aspartate Aminotrans (AST/SGOT 20 U/L (12-37); Bilirubin, Total 1.1 mg/dL (0.1-1.0); Blood Urea Nitrogen 14 mg/dL (8-24); Bun/Creatinine Ratio 16.5 (12.0-20.0); CO2, Blood 25 mmol/L (21-32); Calcium, Blood 8.6 mg/dL (8.5-10.1); Chloride, Blood 102 mmol/L (98-108); Creatinine, Blood 0.85 mg/dL (0.40-1.00); Globulin, Blood 3.5 g/dL (2.2-4.0); Glomerular Filtration Rate >60 (60-); Glucose, Blood 131 mg/dL (70-99); Sodium, Blood 132 mmol/L (136-145); Total Protein, Blood 6.8 g/dL (6.4-8.2)
[2021-03-27 09:16] LABS: BASOPHILS ABSOLUTE MAN 0.15 K/mm3 (0.00-0.23); BASOPHILS PERCENT MAN 1 % (0-2); EOSINOPHILS PERCENT MAN 0 % (0-6); LYMPHOCYTES ABSOLUTE MAN 3.92 K/mm3 (0.84-5.20); LYMPHOCYTES PERCENT MAN 25 % (21-46); MONOCYTES ABSOLUTE MAN 1.09 K/mm3 (0.16-1.47); MONOCYTES PERCENT MAN 7 % (4-13); SEG NEUTROPHILS PERCENT MAN 67 % (41-73); TOTAL CELLS COUNTED 100
--- NOTE | 2021-03-27 18:00 | NUR ---
SHIFT SUMMARY PT HAS DONE WELL TODAY ALTHOUGH SHE IS VERY DECONTIONED. WAS UP TO BSC SEVERAL TIMES & SAT UP IN CHAIR FOR A FEW HOURS. EATING, DRINKING, VOIDING, & HAVING BM's. PLEASANT & COOPERATIVE BUT DOES HAVE TIMES WHERE SHE IS CONFUSED. REORIENTS EASILY & FEELS EMBARRASED AFTER.
[2021-03-28 04:27] LABS: Hemoglobin 13.1 g/dL (11.5-16.0); Mean Corpuscular HGB 29.9 pg (26.0-34.0); Mean Corpuscular HGB Conc 32.8 g/dL (31.5-36.5); Mean Corpuscular Volume 91 fL (80-100); Mean Platelet Volume 10.5 fL (9.1-12.4); Platelet Count 247 K/mm3 (150-400); RDW Coefficient Variation 13.6 % (11.7-14.2); RDW Standard Deviation 46.5 fL (35.1-46.3); Red Blood Cell Count 4.38 M/mm3 (3.80-5.20); White Blood Cell Count 17.27 K/mm3 (4.00-11.30)
[2021-03-28 04:49] LABS: Bun/Creatinine Ratio 17.8 (12.0-20.0); Calcium, Blood 8.4 mg/dL (8.5-10.1); Creatinine, Blood 0.9 mg/dL (0.40-1.00); Potassium, Blood 4.1 mmol/L (3.5-5.5)
--- NOTE | 2021-03-28 05:05 | NUR ---
SHIFT SUMMARY PT ADMITTED FOR L HIP PAIN AND HYPOXIA. NO FX AND NOT SURGICAL. CURRENTLY ON ROOM AIR. TELE IN PLACE AND PER VISITOR SERVICES REPRESENTATIVE PT IS IN A-FLUTTER AT 102. PT IS A&O TO SELF, PLACE, AND SITUATION BUT FORGETFUL AND OCCASIONALLY CONFUSED. BED ALARM IN ON. PT IS A 1 PERSON MODERATE ASSIST WITH GAIT BELT TO BEDSIDE COMMODE. PT IS CURRENTLY SLEEPING IN BED AND CALL LIGHT IS WITHIN REACH. AWAITING PT/OT EVAL.
--- NOTE | 2021-03-28 05:16 | NUR ---
SHIFT SUMMARY POD 3 FOR R HIP GAMMA NAIL. AQUACEL ON PLACE X2 ON R HIP AND C/D/I. PT PICKED AT PROXIMAL AQUACEL AND THAT WAS REPLACED DURING SHIFT. PT IS INCONTINENT AND ATTENDS IS IN PLACE. PT IS A&O X 0 AND IS VERY CONFUSED. PT SHOWED NO SIGNS OF N/V. PT REPORTS PAIN AND FLACC SCALE USED TO ASSESS. PT MEDICATED PER EMAR PRN. ROTATED PT THROUGHOUT SHIFT AND APPLIED ICE THERAPY. PT DECLINED REPOSITIONING WITH PILLOWS MULTIPLE TIMES. PT IS CURRENTLY ASLEEP IN BED AND CALL LIGHT IS WITHIN REACH. BED ALARM ON.
[2021-03-28 13:02] LABS: SARS-Cov-2 (COVID-19) PCR, MMC NEGATIVE (NEGATIVE)
--- NOTE | 2021-03-28 17:55 | NUR ---
DISCHARGE PATIENT DISCHARGED IN STABLE CONDITION TO [facility] VIA WHEELCHAIR TRANSPORT. ALL BELONGINGS PACKED AND SENT WITH PATIENT. REPORT GIVEN TO OSKAR GARLAND AT [facility]
== END 2021-03-28 18:08 ==
LOC: ER 19:49 → SURS 19:50 → MEDS 19:50 → SURS 03-27 04:03
PROVIDERS: Emergency Medicine; Internal Medicine; ADMIT Internal Medicine
DX: R09.02 Hypoxemia (principal); R53.1 Weakness; R26.9 Unspecified abnormalities of gait and mobility; D72.829 Elevated white blood cell count, unspecified; E03.9 Hypothyroidism, unspecified; M81.0 Age-related osteoporosis without current pathological fracture; E86.0 Dehydration; E87.6 Hypokalemia; I48.0 Paroxysmal atrial fibrillation; Z85.3 Personal history of malignant neoplasm of breast; Z20.822 Contact with and (suspected) exposure to COVID-19; Z79.01 Long term (current) use of anticoagulants; Z91.81 History of falling
CPT/HCPCS: 36415; 71045; 73502; 80048; 80053; 81003; 83735; 83880; 84145; 84439; 84443; 84484; 85025; 85027; 93005; 93010; 93306; 96374; 96375; 97110-CO; 97116; 97162; 97165; 97530; 97535; 97535-CO; 99285-25; A9270; J7030; U0004

== ENCOUNTER 2021-09-11 11:55 | Emergency (ER) | payer MEDICARE, BC ==
[~2021-09-11] VITALS: Ht 165.1 cm; Wt 59.0 kg
[2021-09-11 12:37] LABS: BASOPHILS ABSOLUTE AUTO 0.11 K/mm3 (0.00-0.23); BASOPHILS PERCENT AUTO 1 % (0-2); EOSINOPHILS ABSOLUTE AUTO 0.32 K/mm3 (0.00-0.68); EOSINOPHILS PERCENT AUTO 2 % (0-6); Hematocrit 44.2 % (33.0-51.0); Hemoglobin 14.5 g/dL (11.5-16.0); Mean Corpuscular HGB 29.9 pg (26.0-34.0); Mean Corpuscular HGB Conc 32.8 g/dL (31.5-36.5); Mean Corpuscular Volume 91 fL (80-100); Mean Platelet Volume 10.5 fL (9.1-12.4); Platelet Count 286 K/mm3 (150-400); RDW Coefficient Variation 13.6 % (11.7-14.2); RDW Standard Deviation 46.5 fL (35.1-46.3); Red Blood Cell Count 4.85 M/mm3 (3.80-5.20); White Blood Cell Count 13.43 K/mm3 (4.00-11.30)
[2021-09-11 12:45] LABS: IMMATURE GRAN ABSOLUTE AUTO 0.04 K/mm3 (0.00-0.10); IMMATURE GRAN PERCENT AUTO 0 % (0-1); LYMPHOCYTES ABSOLUTE AUTO 5.44 K/mm3 (0.84-5.20); LYMPHOCYTES PERCENT AUTO 41 % (21-46); MONOCYTES ABSOLUTE AUTO 1.34 K/mm3 (0.16-1.47); MONOCYTES PERCENT AUTO 10 % (4-13); NEUTROPHILS ABSOLUTE AUTO 6.18 K/mm3 (1.96-9.15); NEUTROPHILS PERCENT AUTO 46 % (41-73)
[2021-09-11 13:32] LABS: Alanine Aminotransfer (ALT/SGP 17 U/L (12-78); Albumin, Blood 3.2 g/dL (3.4-5.0); Albumin/Globulin Ratio 0.9 (0.8-1.8); Alk Phos 46 U/L (50-136); Anion Gap 6 mmol/L (6-16); Aspartate Aminotrans (AST/SGOT 21 U/L (12-37); Bilirubin, Total 0.4 mg/dL (0.1-1.0); Blood Urea Nitrogen 19 mg/dL (8-24); Bun/Creatinine Ratio 23.1 (12.0-20.0); CO2, Blood 27 mmol/L (21-32); Calcium, Blood 8.7 mg/dL (8.5-10.1); Chloride, Blood 102 mmol/L (98-108); Creatinine, Blood 0.82 mg/dL (0.40-1.00); Globulin, Blood 3.6 g/dL (2.2-4.0); Glomerular Filtration Rate >60 (60-); Glucose, Blood 71 mg/dL (70-99); Potassium, Blood 4.5 mmol/L (3.5-5.5); Sodium, Blood 135 mmol/L (136-145); Total Protein, Blood 6.8 g/dL (6.4-8.2)
== END 2021-09-11 14:45 | disposition home or self-care (01) ==
LOC: ER 11:55
PROVIDERS: Physician Assistant
DX: E86.0 Dehydration (principal); Z91.048 Other nonmedicinal substance allergy status
CPT/HCPCS: 80053; 84484; 85025; 93005; 93010; 99284-25; J7030

== ENCOUNTER 2022-06-15 11:40 | Observation (INO) | payer MEDICARE, BC ==
[~2022-06-15] VITALS: Ht 167.6 cm; Wt 61.0 kg
[2022-06-15 20:01] LABS: BASOPHILS PERCENT AUTO 1 % (0-2); EOSINOPHILS PERCENT AUTO 1 % (0-6); Hematocrit 41.4 % (33.0-51.0); Hemoglobin 14.1 g/dL (11.5-16.0); Mean Corpuscular HGB 30.3 pg (26.0-34.0); Mean Corpuscular HGB Conc 34.1 g/dL (31.5-36.5); Mean Corpuscular Volume 89 fL (80-100); Mean Platelet Volume 10.4 fL (9.1-12.4); Platelet Count 277 K/mm3 (150-400); RDW Coefficient Variation 13.5 % (11.7-14.2); RDW Standard Deviation 44.5 fL (35.1-46.3); Red Blood Cell Count 4.65 M/mm3 (3.80-5.20); White Blood Cell Count 15.85 K/mm3 (4.00-11.30)
[2022-06-15 20:02] LABS: IMMATURE GRAN ABSOLUTE AUTO 0.04 K/mm3 (0.00-0.10); IMMATURE GRAN PERCENT AUTO 0 % (0-1); LYMPHOCYTES ABSOLUTE AUTO 5.64 K/mm3 (0.84-5.20); LYMPHOCYTES PERCENT AUTO 36 % (21-46); MONOCYTES ABSOLUTE AUTO 1.35 K/mm3 (0.16-1.47); MONOCYTES PERCENT AUTO 9 % (4-13); NEUTROPHILS ABSOLUTE AUTO 8.52 K/mm3 (1.96-9.15); NEUTROPHILS PERCENT AUTO 54 % (41-73)
[2022-06-15 20:16] LABS: Albumin, Blood 3.2 g/dL (3.4-5.0); Albumin/Globulin Ratio 0.9 (0.8-1.8); Bilirubin, Total 0.6 mg/dL (0.1-1.0); Bun/Creatinine Ratio 23.2 (12.0-20.0); Calcium, Blood 8.6 mg/dL (8.5-10.1); Creatinine, Blood 0.73 mg/dL (0.40-1.00); Globulin, Blood 3.7 g/dL (2.2-4.0); Potassium, Blood 4.4 mmol/L (3.5-5.5); Total Protein, Blood 6.9 g/dL (6.4-8.2)
--- NOTE | 2022-06-16 05:22 | NUR ---
NEW ADMIT/PLASTICATOR SUMMARY PT ADMIT F/LUMBAR FX AFTER FALLING AT HOME. PT ARRIVED T/ROOM AT 2120; XFERED T/BED W/3 STAFF AND SLIDER SHEET. PT ORIENTED T/ROOM AND CALL LIGHT. A/OX4 W/SOME FORGETFULLNESS/EPISODIC CONFUSION. PLEASANT AND COOPERATIVE WITH CARE. C/O NAUSEA ON ARRIVAL--NEW ORDER F/ZOFRAN 4MG IV Q6PRN. PT STATES HX OF OSTEOPOROSIS, AFIB TREATED W/ELIQUIS, AND LEFT SIDE BREAST CA W/LUMPECTOMY. PT USES FWW AT BASELINE. LIVES IN HER HOME; HAS CAREGIVER ONSITE IN ATTACHED APPARTMENT. ON RA, CLEAR LUNGS. PT HAS RASH IN BRA LINE/UPPER ABDOMEN; SKIN INTACT; ALL OTHER SKIN LOOKS GOOD. SECOND NURSE ASSESS EDIN SAMAYOA. PT HAS BACK BRACE IN PLACE. PT IS 1PA W/FWW TOLERATED. PT C/O OF BACK PAIN INCREASED WITH MOVEMENT AND MILD WITH REST. EARLY THIS AM PT C/O OF FEELING DISORIENTED; PT ABLE T/ANSWER ORIENTATION QUESTIONS. REVIEWED VITALS--SBP 157; ALL OTHER VITALS STABLE. PT CALLS APPROPRIATELY AND ABLE TO MAKE NEEDS KNOWN. PT LEAKY BLADDER/URINE--ATTENDS IN PLACE. BED LOCKED/LOW. CALL LIGHT IN REACH.
[2022-06-16 05:33] LABS: Hematocrit 42.2 % (33.0-51.0); Hemoglobin 14.1 g/dL (11.5-16.0); Mean Corpuscular HGB 30.1 pg (26.0-34.0); Mean Corpuscular HGB Conc 33.4 g/dL (31.5-36.5); Mean Corpuscular Volume 90 fL (80-100); Mean Platelet Volume 10.5 fL (9.1-12.4); Platelet Count 278 K/mm3 (150-400); RDW Coefficient Variation 13.5 % (11.7-14.2); RDW Standard Deviation 44.7 fL (35.1-46.3); Red Blood Cell Count 4.69 M/mm3 (3.80-5.20)
[2022-06-16 07:02] LABS: Bun/Creatinine Ratio 18.4 (12.0-20.0); Calcium, Blood 8.5 mg/dL (8.5-10.1); Creatinine, Blood 0.76 mg/dL (0.40-1.00); Potassium, Blood 4.2 mmol/L (3.5-5.5)
[2022-06-16 07:04] LABS: BASOPHILS PERCENT MAN 0 % (0-2); EOSINOPHILS PERCENT MAN 0 % (0-6); LYMPHOCYTES % ATYPICAL MANUAL 2 % (0-0); LYMPHOCYTES ABSOLUTE MAN 7.04 K/mm3 (0.84-5.20); MONOCYTES ABSOLUTE MAN 0.96 K/mm3 (0.16-1.47); MONOCYTES PERCENT MAN 6 % (4-13); SEG NEUTROPHILS PERCENT MAN 50 % (41-73); TOTAL CELLS COUNTED 100
[2022-06-16 07:05] LABS: LYMPHOCYTES PERCENT MAN 42 % (21-46)
--- NOTE | 2022-06-16 18:34 | NUR ---
PATIENT HAS COMPRESSION FRACTURE IS LUMBAR SPINE. PAIN RATING IS ZERO WHEN LYING STILL. WHILE MOVEING, PAIN IS RATED 5-6. PATIENT HAS BEEN LYING IN BED THIS SHIFT. SHE IS MOST COMFORTABLE IN A POSITION THAT LOOKS VERY UNCOMFORTABLE, BUT IT WORKS WELL FOR HER. SHE DOES GET UP TO USE THE BR. HEART RATE IRREGULAR WITH SLIGHT TRACE OF EDEMA. HISTORY OF AFIB. SKIN TEAR RIGHT FOREARM, COMPENSATION AND HRIS ANALYST. MOOD PLEASANT. THE
--- NOTE | 2022-06-17 04:03 | NUR ---
SUPERVISOR CALIBRATION SUMMARY PT ALERT BUT PRESENTS MORE CONFUSED THIS EVENING THAN PREVIOUS NIGHT. PT FORGETTING SHE IS IN THE HOSPITAL SETTING AND THINKING SHE IS AT HOME. PT RESPONDS WELL TO REORIENTING/REDIRECTING BUT THEN QUICKLY FORGETS. PT REPEATING QUESTIONS ALREADY DISCUSSED. CALLED DR BRYAN--NEW ORDER F/CBC, RENAL PANEL, AND URINE SAMPLE CULTURE IF INDICATED. PT WBC ARE ELEVATED AND TRENDING UP. PT CONT T/HAVE PAIN IN BACK INCREASED W/MOVMENT. PT REQUESTED TYLENOL AT BEDTIME. PT REFUSED EVENING DOSE OF ELIQUIS--STATES SHE ONLY TAKES IN THE MORNING. PT IS [place] AND NEEDS GARBAGE TRUCK DISPATCHER F/HEARING AIDS. PT SAID SHE WOULD CONTACT CAREGIVER TO REQUEST--BUT MAY BE CONFUSED/FORGET. STAFF MAY NEED T/CONTACT OR REMIND PT TO CONTACT. PT 1-2PA T/BR W/FWW. PT HAS BEEN USING CALL LIGHT APPROPRIATELY; HOWEVER HAS MADE A FEW ATTEMPTS TO GET OUT OF BED ON HER OWN THINKING SHE WAS HOME. CALL LIGHT IS IN REACH. BED LOCKED/LOW AND ALARM SET.
[2022-06-17 05:03] LABS: Hematocrit 40.2 % (33.0-51.0); Hemoglobin 13.6 g/dL (11.5-16.0); Mean Corpuscular HGB 30.4 pg (26.0-34.0); Mean Corpuscular HGB Conc 33.8 g/dL (31.5-36.5); Mean Corpuscular Volume 90 fL (80-100); Mean Platelet Volume 10.4 fL (9.1-12.4); Platelet Count 261 K/mm3 (150-400); RDW Coefficient Variation 13.2 % (11.7-14.2); RDW Standard Deviation 43.8 fL (35.1-46.3); Red Blood Cell Count 4.48 M/mm3 (3.80-5.20)
[2022-06-17 06:00] LABS: Albumin, Blood 2.9 g/dL (3.4-5.0); Anion Gap 6 mmol/L (6-16); Blood Urea Nitrogen 21 mg/dL (8-24); Bun/Creatinine Ratio 26.3 (12.0-20.0); CO2, Blood 26 mmol/L (21-32); Calcium, Blood 8.8 mg/dL (8.5-10.1); Chloride, Blood 100 mmol/L (98-108); Glomerular Filtration Rate 71 (60-); Glucose, Blood 107 mg/dL (70-99); Phosphorus, Blood 3.2 mg/dL (2.5-4.9); Potassium, Blood 4.2 mmol/L (3.5-5.5); Sodium, Blood 132 mmol/L (136-145)
[2022-06-17 07:11] LABS: Source, Urine Voided
[2022-06-17 07:46] LABS: Appearance, Urine Clear (Clear); Bilirubin, Urine Neg (Neg); Blood, Urine Neg (Neg); Color, Urine Yellow (P-Yellow); Glucose Qualitative, Urine Neg (Neg); Ketones, Urine Neg (Neg); Leukocyte Esterase, Urine Neg (Neg); Nitrite, Urine Neg (Neg); Protein, Urine Neg (Neg); Urobilinogen, Urine NORM (Normal)
--- NOTE | 2022-06-17 12:54 | NUR ---
PATIENT HAS A RASH WITH SMALL BUMPS UNDER BREAST/ABD FOLD. PROVIDER NOTIFIED. CLOTRIMAZOLE AND BETAMETHASONE DIPROPIOATE CREAM ORDERED AND RECIEVED.
--- NOTE | 2022-06-17 14:25 | NUR ---
MID BACK PAIN INCREASING TO 8/10. UNABLE TO RELIEVE WITH REPOSITIONING AND PATIENT AGREES TO TAKE NARCO. PATIENT HAS CONCERNS BECASUE SHE HEARS "ALL ABOUT THESE DRUGS ON TV". NURSING EDUCATION WAS PROVIDED REGARDING THERAPUTIC MEDICATION MANAGEMENT RATHER THAN RECREATIONAL DRUG USE. PATIENT VERBALIZED APPRECIATION OF THE EXPLANATION AND THEN FELT BETTER ABOUT TAKING THE MEDICATION.
--- NOTE | 2022-06-17 16:33 | NUR ---
PATIENT RESTING IN BED THIS SHIFT. AMBULATING TO THE BR. DR. CARLTON WOULD LIKE TO SEE AN INCREASE OF MOVEMENT. PATIENT DOESN'T LIKE TO MOVE AROUND TO DO THE INCREASE IN PAIN WITH MOVEMENT. ONE PAIN PILL WAS GIVEN THIS SHIFT, IN THE AFTERNOON FOR 8/10 PAIN. THE MEDICATION WAS EFFECTIVE, BUT WAS SLOW TO REDUCE THE PAIN. COMPANY WAS HERE INTERMITTENTLY THROUGH OUT THE SHIFT. IV WAS INFILTRATED UPON ASSESSMENT. PATIENT TAKES NO IV MEDICTIONS SO AN ORDER FOR NO IV ACCESS NEEDED WAS OBTAINED.
--- NOTE | 2022-06-18 04:26 | NUR ---
SECRETARY ADMINISTRATIVE ASSISTANT SUMMARY NO ACUTE EVENTS. PT ABLE T/RESPOND APPROPRIATELY TO ALL ORIENTATION QUESTIONS. NO NOTED EVENTS OF CONFUSION DURING SHIFT. PT MED W/NORCO F/PAIN 1X. CALL F/BOWEL CARE--NEW ORDER F/COLACE BID; MIRALX BID. PT RELUCTANT T/TAKE PAIN AND BOWEL MEDICATIONS. PT C/O OF CONSTIPATION; EDUCATED PT ON INCREASED RISKS F/CONSTIPATION AND IMPORTANCE OF PAIN CONTROL. CALL LIGHT IN REACH.
--- NOTE | 2022-06-18 17:48 | NUR ---
SHIFT SUMMARY NO ACUTE CHANGES DURING SHIFT. PT ALERT AND ORIENTED, CALLS APPROPRIATELY. PT ON RA, X 1 ASSIST WITH FWW TO BATHROOM. MEDICATED WITH PRN TYLENOL X 1 DURING SHIFT FOR BACK PAIN. MONITOR FOR EFFECTIVENESS. PT EVAL COMPLETED, RECOMMENDING PLACEMENT. CONTINUE TO MONITOR, CALL LIGHT WITHIN REACH.
--- NOTE | 2022-06-19 05:54 | NUR ---
SUMMARY: PATIENT DID WELL OVERNIGHT. PAIN MEDS GIVEN PER EMAR. PATIENT AOX4 BUT OCCASIONALLY FORGETS WHERE SHE IS THROUGHOUT NIGHT. PLEASANT AND COMPLIANT WITH ALL CARE. AMBULATED TO RESTROOM WITH WALKER 1X ASSIST THROUGHOUT NIGHT. BACK BRACE IN PLACE. CALL LIGHT IN REACH PATIENT CALLS APPROPRIATELY.
[2022-06-19 12:36] LABS: SARS-Cov-2 (COVID-19) PCR, MMC NEGATIVE (NEGATIVE)
[2022-06-19] MEDS ORDERED: MASOPHEN325 M3 PO (14:40)
[2022-06-19] MEDS ORDERED: CALCITONIN-SAL3.7 M1 (14:41)
[2022-06-19] MEDS ORDERED: THERA-D2000 UNIT PO (14:42)
[2022-06-19] MEDS ORDERED: Norco 5-325 Ta1 EACH PO (14:42)
--- NOTE | 2022-06-19 15:57 | NUR ---
DISCHARGE SUMMARY DISCHARGE, FOLLOW UP, AND MEDICATION INSTRUCTIONS GIVEN TO PT. PT VOICED UNDERSANDING AND HAS NO QUESTIONS AT THIS TIME. NO IV TO BE REMOVED. REPORT CALLED TO [facility]. WHEELCHAIR VAN TO PICK PT UP AT 1600. WILL CONTINUE TO MONITOR UNTIL PT LEAVES.
--- NOTE | 2022-06-19 16:54 | NUR ---
SHIFT SUMMARY NO ACUTE CHANGES DURING SHIFT. PT ALERT AND ORIENTED, INTERMITTENT CONFUSION. PT SBA TO BATHROOM WITH FWW. PT SET TO D/C TO [facility], REPORT CALLED, WAITING ON TRANSPORTATION. WILL CONTINUE TO MONITOR UNTIL PT LEAVES. CALL LIGHT WITHIN REACH.
== END 2022-06-19 17:17 ==
LOC: ER 11:40 → MEDS 11:41
PROVIDERS: Internal Medicine; ADMIT Family Medicine
DX: S32.029A Unspecified fracture of second lumbar vertebra, initial encounter for closed fracture (principal); W18.30XA Fall on same level, unspecified, initial encounter; E03.9 Hypothyroidism, unspecified; I48.91 Unspecified atrial fibrillation; Z79.01 Long term (current) use of anticoagulants; I10 Essential (primary) hypertension; F05 Delirium due to known physiological condition; Z20.822 Contact with and (suspected) exposure to COVID-19
CPT/HCPCS: 36415; 71100; 72128; 72131; 80048; 80053; 80069; 81003; 85025; 85027; 96374; 97110; 97162; 97166; 97530; 97535; 99285-25; A9270; G0378; J2405; U0004

== ENCOUNTER 2023-01-12 19:18 | Emergency (ER) | payer OTHER, MEDICARE, BC ==
[~2023-01-12] VITALS: Ht 165.1 cm; Wt 59.0 kg
[~2023-01-12 19:18] MED LIST changes: +CALCITONIN-SAL3.7 M1; +MASOPHEN325 M3 PO; +THERA-D2000 UNIT PO
[2023-01-12] MEDS ORDERED: HYDR1TAB94 PO (22:44)
[2023-01-12 23:18] VITALS: BP 133/102
== END 2023-01-12 23:20 | disposition home or self-care (01) ==
LOC: ER 19:18
DX: S00.83XA Contusion of other part of head, initial encounter (principal); I48.91 Unspecified atrial fibrillation; M54.6 Pain in thoracic spine; W01.10XA Fall on same level from slipping, tripping and stumbling with subsequent striking against unspecified object, initial encounter; Z88.8 Allergy status to other drugs, medicaments and biological substances; Z79.899 Other long term (current) drug therapy; E03.9 Hypothyroidism, unspecified; Z85.3 Personal history of malignant neoplasm of breast
CPT/HCPCS: 70450; 72070; 72100; 99283-25; A9270

== ENCOUNTER 2023-02-10 20:55 | Emergency (ER) | payer MEDICARE, BC ==
[~2023-02-10] VITALS: Ht 165.1 cm; Wt 59.0 kg
[~2023-02-10 20:55] MED LIST changes: +HYDR1TAB94 PO
[2023-02-10 21:17] LABS: Hematocrit 40.7 % (33.0-51.0); Hemoglobin 13.8 g/dL (11.5-16.0); Mean Corpuscular HGB 29.9 pg (26.0-34.0); Mean Corpuscular HGB Conc 33.9 g/dL (31.5-36.5); Mean Corpuscular Volume 88 fL (80-100); Platelet Count 269 K/mm3 (150-400); RDW Coefficient Variation 14.3 % (11.7-14.2); RDW Standard Deviation 46.3 fL (35.1-46.3); Red Blood Cell Count 4.62 M/mm3 (3.80-5.20); White Blood Cell Count 14.68 K/mm3 (4.00-11.30)
[2023-02-10 21:36] LABS: Albumin, Blood 3.3 g/dL (3.4-5.0); Bilirubin, Total 0.3 mg/dL (0.1-1.0); Bun/Creatinine Ratio 19.1 (12.0-20.0); Calcium, Blood 8.7 mg/dL (8.5-10.1); Creatinine, Blood 0.89 mg/dL (0.40-1.00); Globulin, Blood 3.3 g/dL (2.2-4.0); Potassium, Blood 4.8 mmol/L (3.5-5.5); Total Protein, Blood 6.6 g/dL (6.4-8.2)
[2023-02-10 21:57] LABS: BAND PERCENT MAN 1 % (0-8); BASOPHILS ABSOLUTE MAN 0.14 K/mm3 (0.00-0.23); BASOPHILS PERCENT MAN 1 % (0-2); EOSINOPHILS PERCENT MAN 0 % (0-6); LYMPHOCYTES % ATYPICAL MANUAL 6 % (0-0); LYMPHOCYTES ABSOLUTE MAN 8.07 K/mm3 (0.84-5.20); LYMPHOCYTES PERCENT MAN 49 % (21-46); MONOCYTES ABSOLUTE MAN 1.76 K/mm3 (0.16-1.47); MONOCYTES PERCENT MAN 12 % (4-13); NEUTROPHILS ABSOLUTE MAN 4.69 K/mm3 (1.96-9.15); SEG NEUTROPHILS PERCENT MAN 31 % (41-73); TOTAL CELLS COUNTED 100
[2023-02-11 00:49] LABS: Source, Urine Clean Catch
[2023-02-11 01:04] LABS: Bilirubin, Urine Neg (Neg); Blood, Urine Neg (Neg); Glucose Qualitative, Urine Neg (Neg); Ketones, Urine Neg (Neg); Leukocyte Esterase, Urine 1+ (Neg); Nitrite, Urine Neg (Neg); Protein, Urine Neg (Neg); Specific Gravity, Urine 1.015 (1.003-1.022); Urobilinogen, Urine NORM (Normal)
[2023-02-11 01:10] LABS: Appearance, Urine Hazy (Clear); Color, Urine Yellow (P-Yellow)
[2023-02-11 01:11] LABS: Bacteria Mod /hpf; Red Blood Cells, Urine Not Seen /hpf (0-2); Squamous Epithelial Cells Mod /hpf (Few)
[2023-02-11 01:45] VITALS: BP 124/83
== END 2023-02-11 02:02 | disposition home or self-care (01) ==
LOC: ER 20:55
PROVIDERS: Emergency Medicine
DX: M26.621 Arthralgia of right temporomandibular joint (principal); E86.0 Dehydration; I48.20 Chronic atrial fibrillation, unspecified; I48.91 Unspecified atrial fibrillation; E03.9 Hypothyroidism, unspecified; Z85.3 Personal history of malignant neoplasm of breast; Z88.8 Allergy status to other drugs, medicaments and biological substances; Z79.899 Other long term (current) drug therapy
CPT/HCPCS: 80053; 81001; 85025; 87077; 87086; 87186; 93005; 93010; 96360; 99285-25; J7030

== ENCOUNTER 2023-05-22 10:02 | Emergency (ER) | payer MEDICARE, BC ==
[~2023-05-22] VITALS: Ht 165.1 cm; Wt 60.3 kg
[~2023-05-22 10:02] MED LIST changes: +CEFP200 PO; +LEVE500 PO
[2023-05-22 10:47] LABS: Hemoglobin 13.4 g/dL (11.5-16.0); Mean Corpuscular HGB 29.9 pg (26.0-34.0); Mean Corpuscular HGB Conc 32.7 g/dL (31.5-36.5); Mean Corpuscular Volume 92 fL (80-100); Mean Platelet Volume 10.8 fL (9.1-12.4); Platelet Count 261 K/mm3 (150-400); RDW Coefficient Variation 13.3 % (11.7-14.2); RDW Standard Deviation 45.1 fL (35.1-46.3); Red Blood Cell Count 4.48 M/mm3 (3.80-5.20); White Blood Cell Count 12.57 K/mm3 (4.00-11.30)
[2023-05-22 11:08] LABS: Albumin, Blood 3.2 g/dL (3.4-5.0); Bilirubin, Total 0.5 mg/dL (0.1-1.0); Bun/Creatinine Ratio 19.2 (12.0-20.0); Calcium, Blood 8.2 mg/dL (8.5-10.1); Creatinine, Blood 0.78 mg/dL (0.40-1.00); Globulin, Blood 3.3 g/dL (2.2-4.0); Potassium, Blood 4.1 mmol/L (3.5-5.5); Total Protein, Blood 6.5 g/dL (6.4-8.2)
[2023-05-22 11:15] LABS: BASOPHILS PERCENT MAN 0 % (0-2); EOSINOPHILS ABSOLUTE MAN 0.62 K/mm3 (0.00-0.68); EOSINOPHILS PERCENT MAN 5 % (0-6); LYMPHOCYTES % ATYPICAL MANUAL 2 % (0-0); LYMPHOCYTES ABSOLUTE MAN 6.66 K/mm3 (0.84-5.20); LYMPHOCYTES PERCENT MAN 51 % (21-46); MONOCYTES ABSOLUTE MAN 0.87 K/mm3 (0.16-1.47); MONOCYTES PERCENT MAN 7 % (4-13); NEUTROPHILS ABSOLUTE MAN 4.39 K/mm3 (1.96-9.15); SEG NEUTROPHILS PERCENT MAN 35 % (41-73); TOTAL CELLS COUNTED 100
[2023-05-22 12:30] VITALS: BP 128/86
== END 2023-05-22 13:00 | disposition home or self-care (01) ==
LOC: ER 10:02
PROVIDERS: Emergency Medicine
DX: R55 Syncope and collapse (principal); Z79.899 Other long term (current) drug therapy; Z91.048 Other nonmedicinal substance allergy status; I48.91 Unspecified atrial fibrillation; Z85.3 Personal history of malignant neoplasm of breast; I10 Essential (primary) hypertension; E03.9 Hypothyroidism, unspecified
CPT/HCPCS: 71045; 80053; 83735; 84484; 85025; 93005; 93010; 99285-25

== ENCOUNTER 2023-06-10 13:03 | Emergency (ER) | payer MEDICARE, BC ==
[~2023-06-10] VITALS: Ht 167.6 cm; Wt 68.0 kg
[2023-06-10 14:17] LABS: Hematocrit 40.8 % (33.0-51.0); Hemoglobin 13.6 g/dL (11.5-16.0); Mean Corpuscular HGB 29.8 pg (26.0-34.0); Mean Corpuscular HGB Conc 33.3 g/dL (31.5-36.5); Mean Corpuscular Volume 90 fL (80-100); Mean Platelet Volume 10.5 fL (9.1-12.4); Platelet Count 270 K/mm3 (150-400); RDW Coefficient Variation 13.5 % (11.7-14.2); RDW Standard Deviation 44.6 fL (35.1-46.3); Red Blood Cell Count 4.56 M/mm3 (3.80-5.20); White Blood Cell Count 15.22 K/mm3 (4.00-11.30)
[2023-06-10 14:37] LABS: Albumin, Blood 3.1 g/dL (3.4-5.0); Albumin/Globulin Ratio 0.9 (0.8-1.8); Bilirubin, Total 0.4 mg/dL (0.1-1.0); Bun/Creatinine Ratio 19.6 (12.0-20.0); Calcium, Blood 8.9 mg/dL (8.5-10.1); Creatinine, Blood 0.82 mg/dL (0.40-1.00); Globulin, Blood 3.4 g/dL (2.2-4.0); Potassium, Blood 4.7 mmol/L (3.5-5.5); Total Protein, Blood 6.5 g/dL (6.4-8.2)
[2023-06-10 14:39] LABS: BASOPHILS PERCENT MAN 0 % (0-2); EOSINOPHILS PERCENT MAN 4 % (0-6); LYMPHOCYTES % ATYPICAL MANUAL 3 % (0-0); LYMPHOCYTES ABSOLUTE MAN 4.87 K/mm3 (0.84-5.20); LYMPHOCYTES PERCENT MAN 29 % (21-46); MONOCYTES ABSOLUTE MAN 1.21 K/mm3 (0.16-1.47); MONOCYTES PERCENT MAN 8 % (4-13); NEUTROPHILS ABSOLUTE MAN 8.52 K/mm3 (1.96-9.15); SEG NEUTROPHILS PERCENT MAN 56 % (41-73); TOTAL CELLS COUNTED 100
[2023-06-10 15:17] LABS: Thyroid Stimulating Hormone 0.593 uIU/mL (0.360-4.800)
[2023-06-10 15:19] LABS: Source, Urine Clean Catch
[2023-06-10 15:35] LABS: Appearance, Urine Clear (Clear); Bilirubin, Urine Neg (Neg); Blood, Urine Neg (Neg); Color, Urine Yellow (P-Yellow); Glucose Qualitative, Urine Neg (Neg); Ketones, Urine Neg (Neg); Leukocyte Esterase, Urine Neg (Neg); Nitrite, Urine Neg (Neg); Protein, Urine Neg (Neg); Urobilinogen, Urine NORM (Normal)
[2023-06-10 16:10] VITALS: BP 148/91
== END 2023-06-10 16:35 | disposition home or self-care (01) ==
LOC: ER 13:03
PROVIDERS: Student in an Organized Health Care Education/Training Program
DX: R53.1 Weakness (principal); I48.91 Unspecified atrial fibrillation; I10 Essential (primary) hypertension; Z91.09 Other allergy status, other than to drugs and biological substances; Z79.890 Hormone replacement therapy; Z79.899 Other long term (current) drug therapy; Z79.01 Long term (current) use of anticoagulants
CPT/HCPCS: 71045; 80053; 81003; 83880; 84443; 84484; 85025; 93005; 93010; 99285-25

== ENCOUNTER 2023-07-03 12:50 | Emergency (ER) | payer MEDICARE, BC ==
[~2023-07-03] VITALS: Ht 170.2 cm; Wt 104.3 kg
[2023-07-03 14:36] LABS: Hematocrit 42.3 % (33.0-51.0); Hemoglobin 14.2 g/dL (11.5-16.0); Mean Corpuscular HGB 30.1 pg (26.0-34.0); Mean Corpuscular HGB Conc 33.6 g/dL (31.5-36.5); Mean Corpuscular Volume 90 fL (80-100); Mean Platelet Volume 10.3 fL (9.1-12.4); Platelet Count 292 K/mm3 (150-400); RDW Coefficient Variation 13.8 % (11.7-14.2); RDW Standard Deviation 45.6 fL (35.1-46.3); Red Blood Cell Count 4.71 M/mm3 (3.80-5.20); White Blood Cell Count 18.58 K/mm3 (4.00-11.30)
[2023-07-03 15:00] LABS: BAND PERCENT MAN 1 % (0-8); BASOPHILS ABSOLUTE MAN 0.18 K/mm3 (0.00-0.23); BASOPHILS PERCENT MAN 1 % (0-2); EOSINOPHILS ABSOLUTE MAN 0.37 K/mm3 (0.00-0.68); EOSINOPHILS PERCENT MAN 2 % (0-6); LYMPHOCYTES % ATYPICAL MANUAL 2 % (0-0); LYMPHOCYTES PERCENT MAN 40 % (21-46); MONOCYTES ABSOLUTE MAN 0.92 K/mm3 (0.16-1.47); MONOCYTES PERCENT MAN 5 % (4-13); NEUTROPHILS ABSOLUTE MAN 9.29 K/mm3 (1.96-9.15); SEG NEUTROPHILS PERCENT MAN 49 % (41-73); TOTAL CELLS COUNTED 100
[2023-07-03 15:12] LABS: Albumin, Blood 3.1 g/dL (3.4-5.0); Albumin/Globulin Ratio 0.9 (0.8-1.8); Bilirubin, Total 0.3 mg/dL (0.1-1.0); Bun/Creatinine Ratio 26.7 (12.0-20.0); Calcium, Blood 8.9 mg/dL (8.5-10.1); Creatinine, Blood 1.01 mg/dL (0.40-1.00); Globulin, Blood 3.5 g/dL (2.2-4.0); Potassium, Blood 4.9 mmol/L (3.5-5.5); Total Protein, Blood 6.6 g/dL (6.4-8.2)
[2023-07-03] MEDS ORDERED: EUTHYROX88 MC1 PO (16:37)
[2023-07-03] MEDS ORDERED: LEVETIRACETAM50014 PO (16:38)
[2023-07-03 16:55] LABS: Source, Urine Clean Catch
[2023-07-03 16:58] LABS: Appearance, Urine Cloudy (Clear); Bilirubin, Urine Neg (Neg); Blood, Urine 2+ (Neg); Color, Urine Yellow (P-Yellow); Glucose Qualitative, Urine Neg (Neg); Ketones, Urine Neg (Neg); Leukocyte Esterase, Urine 3+ (Neg); Nitrite, Urine Pos (Neg); Protein, Urine 2+ (Neg); Urobilinogen, Urine NORM (Normal)
[2023-07-03 17:05] LABS: Bacteria Many /hpf; Squamous Epithelial Cells Few /hpf (Few); White Blood Cells, Urine TNTC /hpf (0-5)
[2023-07-03 17:15] VITALS: BP 165/104
[2023-07-03] MEDS ORDERED: CEPH500 PO (17:26)
== END 2023-07-03 17:32 | disposition home or self-care (01) ==
LOC: ER 12:50
PROVIDERS: Physician Assistant
DX: N39.0 Urinary tract infection, site not specified (principal); I48.91 Unspecified atrial fibrillation; E03.9 Hypothyroidism, unspecified; M81.0 Age-related osteoporosis without current pathological fracture; I10 Essential (primary) hypertension; Z79.890 Hormone replacement therapy; Z79.01 Long term (current) use of anticoagulants; Z79.899 Other long term (current) drug therapy
CPT/HCPCS: 80053; 81001; 85025; 87077; 87086; 87186; 93005; 93010; 99285-25

== ENCOUNTER 2023-08-03 15:36 | Emergency (ER) | payer MEDICARE, BC ==
[~2023-08-03] VITALS: Ht 165.1 cm; Wt 59.9 kg
[~2023-08-03 15:36] MED LIST changes: +CEPH500 PO; +EUTHYROX88 MC1 PO; +LEVETIRACETAM50014 PO
[2023-08-03 15:43] VITALS: BP 166/109
[2023-08-03] MEDS ORDERED: Acetaminophen 500 MG Tab PO ONE (18:20)
[2023-08-03] MEDS ORDERED: HYDR1TAB94 PO (19:12)
== END 2023-08-03 19:40 | disposition home or self-care (01) ==
LOC: ER 15:36
DX: S22.41XA Multiple fractures of ribs, right side, initial encounter for closed fracture (principal); M54.9 Dorsalgia, unspecified; G89.29 Other chronic pain; W07.XXXA Fall from chair, initial encounter; Y93.89 Activity, other specified; Z79.890 Hormone replacement therapy; Z79.01 Long term (current) use of anticoagulants; Z79.899 Other long term (current) drug therapy
CPT/HCPCS: 71101; 99283-25; A9270

== ENCOUNTER → 2024-01-24 | Outpatient (CLI) | payer MEDICARE, BC ==
[~2024-01-24] MED LIST changes: +AMOCLA875 PO; +Acetaminophen325 M1 PO; +MELATONIN5 M1 PO; +Percocet 5-3251 EACH PO; +VISBIOME 112.51 EACH PO
[2024-01-24 18:05] LABS: Source, Urine Clean Catch
[2024-01-24 18:12] LABS: Appearance, Urine Clear (Clear); Bilirubin, Urine Neg (Neg); Blood, Urine Neg (Neg); Color, Urine Yellow (P-Yellow); Glucose Qualitative, Urine Neg (Neg); Ketones, Urine Neg (Neg); Leukocyte Esterase, Urine 1+ (Neg); Nitrite, Urine Neg (Neg); Protein, Urine 1+ (Neg); Urobilinogen, Urine NORM (Normal)
[2024-01-24 18:35] LABS: Bacteria Few /hpf; Red Blood Cells, Urine 0-2 /hpf (0-2); Squamous Epithelial Cells Few /hpf (Few)
== END | disposition home or self-care (01) ==
LOC: LAB SHORT 14:00 → LAB 15:00
PROVIDERS: Internal Medicine
DX: N39.498 Other specified urinary incontinence (principal); R35.0 Frequency of micturition
CPT/HCPCS: 81001; 87086

== ENCOUNTER 2024-02-25 18:12 | Emergency (ER) | payer MEDICARE, BC ==
[~2024-02-25] VITALS: Ht 170.2 cm; Wt 59.0 kg
[2024-02-25] MEDS ORDERED: Lactated Ringer's 1,000 ML IV ONE (18:35)
[2024-02-25 18:41] LABS: Hematocrit 40.1 % (33.0-51.0); Hemoglobin 13.3 g/dL (11.5-16.0); Mean Corpuscular HGB 29.8 pg (26.0-34.0); Mean Corpuscular HGB Conc 33.2 g/dL (31.5-36.5); Mean Corpuscular Volume 90 fL (80-100); Mean Platelet Volume 9.7 fL (9.1-12.4); Platelet Count 306 K/mm3 (150-400); RDW Coefficient Variation 13.3 % (11.7-14.2); RDW Standard Deviation 44.2 fL (35.1-46.3); Red Blood Cell Count 4.46 M/mm3 (3.80-5.20); White Blood Cell Count 16.21 K/mm3 (4.00-11.30)
[2024-02-25 18:45] LABS: Source, Urine Straight Cath
[2024-02-25 18:57] LABS: Albumin, Blood 3.3 g/dL (3.4-5.0); Albumin/Globulin Ratio 0.9 (0.8-1.8); Bilirubin, Total 0.6 mg/dL (0.1-1.0); Calcium, Blood 8.8 mg/dL (8.5-10.1); Creatinine, Blood 0.74 mg/dL (0.40-1.00); Globulin, Blood 3.5 g/dL (2.2-4.0); Potassium, Blood 4.5 mmol/L (3.5-5.5); Total Protein, Blood 6.8 g/dL (6.4-8.2)
[2024-02-25 19:00] LABS: Appearance, Urine Clear (Clear); Bilirubin, Urine Neg (Neg); Blood, Urine Neg (Neg); Color, Urine Yellow (P-Yellow); Glucose Qualitative, Urine Neg (Neg); Ketones, Urine 2+ (Neg); Leukocyte Esterase, Urine Neg (Neg); Nitrite, Urine Neg (Neg); Protein, Urine 1+ (Neg); Specific Gravity, Urine 1.015 (1.003-1.022); Urobilinogen, Urine NORM (Normal); pH, Urine 6.5 (5.0-8.0)
[2024-02-25 19:10] LABS: BASOPHILS PERCENT MAN 0 % (0-2); EOSINOPHILS ABSOLUTE MAN 0.16 K/mm3 (0.00-0.68); EOSINOPHILS PERCENT MAN 1 % (0-6); LYMPHOCYTES % ATYPICAL MANUAL 4 % (0-0); LYMPHOCYTES PERCENT MAN 46 % (21-46); MONOCYTES ABSOLUTE MAN 0.81 K/mm3 (0.16-1.47); MONOCYTES PERCENT MAN 5 % (4-13); NEUTROPHILS ABSOLUTE MAN 7.13 K/mm3 (1.96-9.15); SEG NEUTROPHILS PERCENT MAN 44 % (41-73); TOTAL CELLS COUNTED 100
[2024-02-25 19:41] LABS: Influenza A, PCR NEGATIVE (NEGATIVE); Influenza B, PCR NEGATIVE (NEGATIVE); Resp Syncytial Virus, PCR NEGATIVE (NEGATIVE); SARS-Cov-2 (COVID-19) PCR, MMC NEGATIVE (NEGATIVE)
[2024-02-25 20:43] VITALS: BP 155/102
== END 2024-02-25 21:22 | disposition home or self-care (01) ==
LOC: ER 18:12
PROVIDERS: Student in an Organized Health Care Education/Training Program
DX: G93.40 Encephalopathy, unspecified (principal); G91.2 (Idiopathic) normal pressure hydrocephalus; E87.1 Hypo-osmolality and hyponatremia; R53.1 Weakness; I10 Essential (primary) hypertension; I48.91 Unspecified atrial fibrillation; E03.9 Hypothyroidism, unspecified; Z79.899 Other long term (current) drug therapy; Z91.048 Other nonmedicinal substance allergy status
CPT/HCPCS: 0241U; 51701; 70450; 71045; 80053; 83605; 84484; 85025; 93005; 93010; 96360; 99285-25; J7120; P9612